=== PATIENT | female | born 1970 | race Caucasian/White ===

== ENCOUNTER 2017-04-01 22:14 | Inpatient (IN) | payer MEDICARE ==
[~2017-04-01] VITALS: Ht 170.1 cm; Wt 134.0 kg
[2017-04-01] VITALS (8 sets, daily range): BP systolic 82–120; BP diastolic 46–78
[~2017-04-01 22:14] MED LIST: ADVAIR 100/501 E1 INH; ANTIVERT25 MG PO; ATIVAN1 MG PO; AVPAK AZITHROM250 M1 PO; BACTRIM DS 8001 TA1 PO; BIRTH CONTROL1 EAC1; BUSPAR15 MG PO; CILOXAN 5 ML5 M1 OP; DEPAKOTE250 MG PO; DIFLUCAN150 MG PO; DOXYCYCLINE MO100 MG PO; DUONEB 3 MG/3 ML3 M1 INH; ELAVIL100 MG PO; ERYTHROMYCIN5 MG/G2 OPH; FIORICET 325 MG1 TAB PO; FLEXERIL10 MG PO; FLONASE0.05 MG/AC NS; HYDROXYZINE PAM50 MG PO; KLONOPIN1 MG PO; LIPITOR40 MG PO; LOMOTIL 0.025 M1 TA1 PO; LUNESTA2 MG PO; Lopressor25 MG PO; MAXALT5 MG PO; MEDROL DOSEPAK4 MG PO; METOPROLOL SUC100 M1 PO; MOTRIN800 MG PO; MULTI-DAY PLUS1 EACH PO; NEXIUM I.V.40 MG PO; NEXIUM40 MG PO; NORFLEX100 MG PO; PERCOCET 325 MG1 TA2 PO; PERCOCET 325 MG1 TA3 PO; PERCOCET 325 MG1 TA7 PO; PHENERGAN25 M1 PO; PREDNICOT20 MG PO; PREDNISONE10 MG PO; PRESTIQUE PO; SINGULAIR4 MG PO; SKELAXIN400 MG PO; TESSALON PERLE100 M1 PO; TESSALON PERLE200 MG PO; TRAMADOL HCL50 MG PO; ULTRAM50 MG PO; VENTOLIN0.09 MG/AC IH; VICODIN 5/500 505 MG; VICODIN 5/500 505 MG PO; VITAMIN D2000 IU PO; Vicodin 5/500 505 MG PO; ZANAFLEX6 M1 PO; ZITHROMAX Z PA250 MG PO; ZOFRAN ODT4 MG SL; ZOFRAN ODT8 MG PO; ZOFRAN4 MG PO; ZOFRAN8 M1 PO; ZYRTEC10 M1 PO; [UNRECOGNIZED DRUG - REMARK]
[2017-04-01 22:51] LABS: BASO # 0.1 10*3/uL (0.0-0.1); BASO % 0.6 % (0.0-1.0); EOS # 0.1 10*3/uL (0.0-0.4); HEMATOCRIT 43.9 % (37.0-47.0); HEMOGLOBIN 14.4 g/dl (12.0-16.0); LYMPH % 38.9 % (27.0-41.0); MEAN CELL VOLUME 93.4 fl (81.0-99.0); MEAN CORPUSCULAR HGB 30.6 pg (27.0-31.0); MEAN CORPUSCULAR HGB CONC 32.8 g/dl (33.0-37.0); MEAN PLATELET VOLUME 11.2 fl (9.6-12.3); MONO # 0.5 10*3/uL (0.1-1.0); MONO % 4.2 % (3.0-9.0); NEUT % 55.1 % (47.0-73.0); PLATELET COUNT AUTOMATED 320 10*3/uL (130-400); RED CELL DISTRI WIDTH 12.8 % (0-14.5); WHITE BLOOD COUNT 12.8 10*3/uL (4.8-10.8)
[2017-04-01 23:07] LABS: ALBUMIN 3.2 gm/dl (3.1-4.5); ALKALINE PHOSPHATASE 125 U/L (45-117); BILIRUBIN, TOTAL 0.3 mg/dl (0.2-1.0); BUN 8 mg/dl (7-24); C-REACTIVE PROTEIN 0.68 MG/DL (0-0.3); CARBON DIOXIDE 25 mmol/L (21-32); CHLORIDE 102 mmol/L (98-107); EST GLOM FILT AFRICAN AMERICAN > 60 ml/min; GLUCOSE 201 mg/dL (65-99); POTASSIUM 4.1 mmol/L (3.5-5.1); SGOT/AST 30 IU/L (3-35); SGPT/ALT 54 U/L (12-78); SODIUM 141 mmol/L (136-145); TOTAL PROTEIN 6.6 gm/dL (6.4-8.2)
[2017-04-01 23:11] LABS: TROPONIN I < 0.015 ng/ml (<0.045)
[2017-04-02] VITALS (38 sets, daily range): BP systolic 72–183; BP diastolic 24–100
[2017-04-02 00:48] LABS: LA>2 REFLEX 2 HR DRAW NOW
[2017-04-02 01:08] LABS: LA>2 RFLX FOLLOW UP AT 2 HRS 2.3 mmol/L (0.4-2.0)
[2017-04-02 02:26] LABS: BILIRUBIN NEGATIVE (NEGATIVE); BLOOD NEGATIVE (NEGATIVE); CLARITY CLEAR (CLEAR); COLOR YELLOW (YELLOW); GLUCOSE NEGATIVE (NEGATIVE); KETONE NEGATIVE (NEGATIVE); LEUKO ESTERASE NEGATIVE (NEGATIVE); NITRITE NEGATIVE (NEGATIVE); PROTEIN NEGATIVE (NEGATIVE); UROBILINOGEN 0.2 E.U./dl (0.2-1.0)
[2017-04-02 02:32] LABS: HYALINE CAST 25-30; URINE REFLEX COMMENT NO (NO)
[2017-04-02 02:37] LABS: URINE AMPHETAMINES < 1000 (1000ng/ml); URINE BARBITURATES < 200 (200ng/ml); URINE COCAINE < 300 (300ng/ml)
[2017-04-02 02:57] LABS: LA>2 REFLEX 4 HR DRAW NOW
[2017-04-02 05:37] LABS: ALBUMIN 3.2 gm/dl (3.1-4.5); ALKALINE PHOSPHATASE 118 U/L (45-117); BILIRUBIN, TOTAL 0.3 mg/dl (0.2-1.0); BUN 8 mg/dl (7-24); CARBON DIOXIDE 27 mmol/L (21-32); CHLORIDE 105 mmol/L (98-107); CHOLESTEROL 161 mg/dL (<200); EST GLOM FILT AFRICAN AMERICAN > 60 ml/min; FREE T4 0.84 ng/dl (0.76-1.46); GLUCOSE 144 mg/dL (65-99); HDL CHOLESTEROL 44 mg/dl (40-60); LDL CHOLESTEROL 74 mg/dL (9-159); PHOSPHOROUS 3.1 mg/dL (2.5-4.9); POTASSIUM 3.9 mmol/L (3.5-5.1); SGOT/AST 31 IU/L (3-35); SGPT/ALT 51 U/L (12-78); SODIUM 143 mmol/L (136-145); TOTAL PROTEIN 6.4 gm/dL (6.4-8.2); TRIGLYCERIDES 216 mg/dl (<150); VLDL CHOLESTEROL 43 mg/dL (6-40)
[2017-04-02 06:05] LABS: BASO # 0.1 10*3/uL (0.0-0.1); BASO % 0.4 % (0.0-1.0); EOS # 0.1 10*3/uL (0.0-0.4); EOS % 0.3 % (1.0-4.0); HEMATOCRIT 40.5 % (37.0-47.0); HEMOGLOBIN 13.4 g/dl (12.0-16.0); IG # 0.1 10*3/uL (0.0-0.1); LYMPH # 2.9 10*3/uL (1.3-4.4); LYMPH % 15.9 % (27.0-41.0); MEAN CORPUSCULAR HGB 31.1 pg (27.0-31.0); MEAN CORPUSCULAR HGB CONC 33.1 g/dl (33.0-37.0); MEAN PLATELET VOLUME 11.3 fl (9.6-12.3); MONO # 1.2 10*3/uL (0.1-1.0); MONO % 6.6 % (3.0-9.0); NEUT % 76.3 % (47.0-73.0); PLATELET COUNT AUTOMATED 363 10*3/uL (130-400); RED BLOOD COUNT 4.31 10*6/uL (4.10-5.10); RED CELL DISTRI WIDTH 12.8 % (0-14.5); WHITE BLOOD COUNT 18.4 10*3/uL (4.8-10.8)
[2017-04-02 06:31] LABS: INTERNATIONAL NORM RATIO 1.1 (2.0-3.5); PROTHROMBIN TIME 11.3 SECONDS (9.0-12.4)
[2017-04-02 06:56] LABS: HEMOGLOBIN A1c 6.8 % (4.8-5.6)
[2017-04-02 07:46] LABS: VITAMIN D, 25-HYDROXY 29.9 ng/mL (30-100)
[2017-04-02 07:47] LABS: FOLIC ACID > 24.00 ng/mL (>5.38)
[2017-04-02] MEDS ORDERED: MELATONIN10 M2 PO (09:35)
== END 2017-04-02 17:36 | disposition home or self-care (01) | DRG 917 ==
LOC: ED 22:14 → EDHOLD 04-02 00:26 → ICCU 04-02 00:26 → 4E 04-02 13:12
PROVIDERS: Emergency Medicine Emergency Medical Services; Internal Medicine Hospice and Palliative Medicine
DX: T50.901A Poisoning by unspecified drugs, medicaments and biological substances, accidental (unintentional), initial encounter (principal); N17.0 Acute kidney failure with tubular necrosis; I95.2 Hypotension due to drugs; E87.2 Acidosis; K31.84 Gastroparesis; Z68.42 Body mass index [BMI] 45.0-49.9, adult; G43.909 Migraine, unspecified, not intractable, without status migrainosus; Z91.041 Radiographic dye allergy status; Z91.018 Allergy to other foods; Z83.3 Family history of diabetes mellitus; Z80.9 Family history of malignant neoplasm, unspecified; F32.9 Major depressive disorder, single episode, unspecified; I10 Essential (primary) hypertension; F41.1 Generalized anxiety disorder; K21.9 Gastro-esophageal reflux disease without esophagitis; K76.89 Other specified diseases of liver; E28.2 Polycystic ovarian syndrome; J30.2 Other seasonal allergic rhinitis; D72.829 Elevated white blood cell count, unspecified; R73.9 Hyperglycemia, unspecified; E66.01 Morbid (severe) obesity due to excess calories; E78.00 Pure hypercholesterolemia, unspecified; M51.36 Other intervertebral disc degeneration, lumbar region; E55.9 Vitamin D deficiency, unspecified

== ENCOUNTER 2017-08-18 11:13 | Emergency (ER) | payer MEDICARE ==
[~2017-08-18] VITALS: Ht 170.1 cm; Wt 132.9 kg
[~2017-08-18 11:13] MED LIST changes: +MELATONIN10 M2 PO
[2017-08-18 11:33] VITALS: BP 144/97
[2017-08-18] MEDS ORDERED: DELTASONE20 M1 PO (11:59)
[2017-08-18] MEDS ORDERED: NEURONTIN100 MG PO (12:07)
== END 2017-08-18 12:11 | disposition home or self-care (01) ==
LOC: ED 11:13
DX: M54.42 Lumbago with sciatica, left side (principal); M54.41 Lumbago with sciatica, right side; J45.909 Unspecified asthma, uncomplicated; K21.9 Gastro-esophageal reflux disease without esophagitis; I10 Essential (primary) hypertension; E78.00 Pure hypercholesterolemia, unspecified; R73.9 Hyperglycemia, unspecified; I95.9 Hypotension, unspecified; G43.909 Migraine, unspecified, not intractable, without status migrainosus; N17.0 Acute kidney failure with tubular necrosis; Z90.49 Acquired absence of other specified parts of digestive tract; Z91.041 Radiographic dye allergy status; Z91.018 Allergy to other foods; Z79.899 Other long term (current) drug therapy

== ENCOUNTER → 2017-10-15 | Outpatient (CLI) | payer MEDICARE ==
[~2017-10-15] MED LIST changes: +DELTASONE20 M1 PO; +NEURONTIN100 MG PO
== END | disposition home or self-care (01) ==
LOC: D 13:49
DX: E78.4 Other hyperlipidemia (principal); E66.9 Obesity, unspecified; E11.9 Type 2 diabetes mellitus without complications; K76.9 Liver disease, unspecified

== ENCOUNTER → 2018-03-12 | Outpatient (CLI) | payer MEDICARE | LOC: US 13:17 | DX: O26.851 Spotting complicating pregnancy, first trimester (principal); R93.8 Abnormal findings on diagnostic imaging of other specified body structures; M54.5 Low back pain; Z3A.01 Less than 8 weeks gestation of pregnancy ==

== ENCOUNTER → 2018-04-14 | Outpatient (CLI) | payer MEDICARE | END | disposition home or self-care (01) | LOC: MAMMO 15:19 | DX: Z12.31 Encounter for screening mammogram for malignant neoplasm of breast (principal) ==

== ENCOUNTER → 2018-07-30 | Outpatient (CLI) | payer MEDICARE ==
[2018-07-30 12:40] LABS: HEMATOCRIT 44.8 % (37.0-47.0); HEMOGLOBIN 14.1 g/dl (12.0-16.0); MEAN CELL VOLUME 99.1 fl (81.0-99.0); MEAN CORPUSCULAR HGB 31.2 pg (27.0-31.0); MEAN CORPUSCULAR HGB CONC 31.5 g/dl (33.0-37.0); MEAN PLATELET VOLUME 11.5 fl (9.6-12.3); PLATELET COUNT AUTOMATED 341 10*3/uL (130-400); RED BLOOD COUNT 4.52 10*6/uL (4.10-5.10); RED CELL DISTRI WIDTH 14.7 % (0-14.5); WHITE BLOOD COUNT 11.2 10*3/uL (4.8-10.8)
[2018-07-30 12:59] LABS: ALBUMIN 3.4 gm/dl (3.1-4.5); BUN 16 mg/dl (7-24); CHLORIDE 103 mmol/L (98-107); CHOLESTEROL 150 mg/dL (<200); CREATININE 0.93 mg/dL (0.55-1.02); POTASSIUM 4.1 mmol/L (3.5-5.1); SGOT/AST 27 IU/L (3-35); SGPT/ALT 46 U/L (12-78); SODIUM 140 mmol/L (136-145); TOTAL PROTEIN 6.9 gm/dL (6.4-8.2); TRIGLYCERIDES 186 mg/dl (<150); VLDL CHOLESTEROL 37 mg/dL (6-40)
[2018-07-30 13:00] LABS: BASOPHILS 1 % (0-1); TOTAL CELLS COUNTED 100 #CELLS
[2018-07-30 13:02] LABS: PLATELET SUFFICIENCY NORMAL (NORMAL)
[2018-07-30 13:08] LABS: ALKALINE PHOSPHATASE 111 U/L (45-117); HDL CHOLESTEROL 47 mg/dl (40-60); LDL CHOLESTEROL 66 mg/dL (9-159)
[2018-07-31 06:12] LABS: TOTAL PROTEIN, SERUM 6.4 g/dL (6.0-8.5)
[2018-07-31 15:11] LABS: A/G RATIO 1.1 (0.7-1.7); ALBUMIN 3.4 g/dL (2.9-4.4); ALPHA-1-GLOBULIN 0.2 g/dL (0.0-0.4); ALPHA-2-GLOBULIN 1.1 g/dL (0.4-1.0); ANTICARDIOLIPIN AB, IGG, QN <9 GPL U/mL (0-14); ANTICARDIOLIPIN AB, IGM, QN <9 MPL U/mL (0-12); BETA GLOBULIN 1.3 g/dL (0.7-1.3); CARDIOLIPIN AB IGA 161836 <9 APL U/mL (0-11); GAMMA GLOBULIN 0.5 g/dL (0.4-1.8); M-SPIKE Not Observed g/dL (Not Observed)
[2018-07-31 16:12] LABS: HEMOGLOBIN SOLUBILITY Negative (Negative)
[2018-08-01 00:10] LABS: ACTIVATED PROTEIN C 117762 2.6 ratio (2.2-3.5)
[2018-08-01 20:07] LABS: ANTIPHOSPHATIDYLSERINE IGM 3 MPS IgM (0-25)
== END | disposition home or self-care (01) ==
LOC: LAB 11:54
PROVIDERS: Nurse Practitioner Family
DX: I10 Essential (primary) hypertension (principal); E11.9 Type 2 diabetes mellitus without complications; E03.9 Hypothyroidism, unspecified; N93.9 Abnormal uterine and vaginal bleeding, unspecified; N95.0 Postmenopausal bleeding; E78.2 Mixed hyperlipidemia; F32.9 Major depressive disorder, single episode, unspecified; E55.9 Vitamin D deficiency, unspecified; Z79.899 Other long term (current) drug therapy

== ENCOUNTER 2018-09-02 13:55 | Emergency (ER) | payer MEDICARE ==
[~2018-09-02] VITALS: Ht 170.1 cm; Wt 142.9 kg
[2018-09-02 13:56] VITALS: BP 126/84
[2018-09-02] MEDS ORDERED: NAPROSYN500 MG PO (15:16)
[2018-09-02] MEDS ORDERED: CHLORZOXAZONE500 M2 PO (15:16)
[2018-09-02] MEDS ORDERED: PREDNISONE20 M1 PO (15:16)
== END 2018-09-02 15:20 | disposition home or self-care (01) ==
LOC: ED 13:55
DX: S39.012A Strain of muscle, fascia and tendon of lower back, initial encounter (principal); Z91.041 Radiographic dye allergy status; Z91.018 Allergy to other foods; Z79.899 Other long term (current) drug therapy; Z90.49 Acquired absence of other specified parts of digestive tract; X50.1XXA Overexertion from prolonged static or awkward postures, initial encounter; Y93.89 Activity, other specified; Y92.89 Other specified places as the place of occurrence of the external cause; Y99.8 Other external cause status

== ENCOUNTER → 2018-11-06 | Outpatient (CLI) | payer MEDICARE ==
[~2018-11-06] MED LIST changes: +CHLORZOXAZONE500 M2 PO; +NAPROSYN500 MG PO; +PREDNISONE20 M1 PO
[2018-11-06 14:46] LABS: BASO # 0.1 10*3/uL (0.0-0.1); BASO % 0.8 % (0.0-1.0); EOS # 0.1 10*3/uL (0.0-0.4); EOS % 0.7 % (1.0-4.0); HEMATOCRIT 48.6 % (37.0-47.0); HEMOGLOBIN 15.7 g/dl (12.0-16.0); LYMPH # 3.2 10*3/uL (1.3-4.4); LYMPH % 27.9 % (27.0-41.0); MEAN CELL VOLUME 96.2 fl (81.0-99.0); MEAN CORPUSCULAR HGB 31.1 pg (27.0-31.0); MEAN CORPUSCULAR HGB CONC 32.3 g/dl (33.0-37.0); MEAN PLATELET VOLUME 11.5 fl (9.6-12.3); MONO # 0.7 10*3/uL (0.1-1.0); MONO % 5.7 % (3.0-9.0); NEUT # 7.4 10*3/uL (2.3-7.9); NEUT % 64.5 % (47.0-73.0); PLATELET COUNT AUTOMATED 360 10*3/uL (130-400); RED BLOOD COUNT 5.05 10*6/uL (4.10-5.10); RED CELL DISTRI WIDTH 13.2 % (0-14.5); WHITE BLOOD COUNT 11.4 10*3/uL (4.8-10.8)
[2018-11-06 14:59] LABS: BUN 13 mg/dl (7-24)
[2018-11-06 15:14] LABS: ALBUMIN 3.6 gm/dl (3.1-4.5); ALKALINE PHOSPHATASE 147 U/L (45-117); CHLORIDE 102 mmol/L (98-107); CHOLESTEROL 163 mg/dL (<200); HDL CHOLESTEROL 50 mg/dl (40-60); LDL CHOLESTEROL 79 mg/dL (9-159); POTASSIUM 4.2 mmol/L (3.5-5.1); SGOT/AST 33 IU/L (3-35); SGPT/ALT 52 U/L (12-78); SODIUM 139 mmol/L (136-145); TOTAL PROTEIN 7.7 gm/dL (6.4-8.2); TRIGLYCERIDES 169 mg/dl (<150); VLDL CHOLESTEROL 34 mg/dL (6-40)
== END | disposition home or self-care (01) ==
LOC: LAB 14:01
PROVIDERS: Nurse Practitioner Family
DX: J01.10 Acute frontal sinusitis, unspecified (principal); E11.9 Type 2 diabetes mellitus without complications; J45.40 Moderate persistent asthma, uncomplicated; F32.9 Major depressive disorder, single episode, unspecified; I10 Essential (primary) hypertension; J30.2 Other seasonal allergic rhinitis; E78.5 Hyperlipidemia, unspecified; Z79.899 Other long term (current) drug therapy

== ENCOUNTER → 2019-02-10 | Outpatient (CLI) | payer MEDICARE | END | disposition home or self-care (01) | LOC: US 14:00 | DX: N85.01 Benign endometrial hyperplasia (principal); Z97.5 Presence of (intrauterine) contraceptive device ==

== ENCOUNTER → 2019-05-17 | Outpatient (CLI) | payer MEDICARE | END | disposition home or self-care (01) | LOC: ORTHO 01:31 | DX: M17.11 Unilateral primary osteoarthritis, right knee (principal) ==

== ENCOUNTER → 2019-06-14 | Outpatient (CLI) | payer MEDICARE ==
--- NOTE | ~2019-06-14 | EKG ---
[place], [place] ELECTROCARDIOGRAM REPORT NAME: NAHMOY VASQUEZ UNIT #: [id number] ROOM: DOCTOR: [facility] D[facility] RE[facility] BIRTHDATE: [birth year] [facility] Test Date: 2019-06-14 Test Time: 15:11:32 Pat Name: NAHOMY VASQUEZ Department: Room: Gender: F [employer]ush [employer] Assembler: SS RESP : 1970 Requested By: KEN FRIEDMAN Order Number: [id number] Reading MD: Sandeep David MD Measurements Intervals [place] Rate: 111 P: 67 WI: 149 QRS: 26 QRSD: 93 T: 9 QT: 345 QTc: 469 Interpretive Statements Sinus tachycardia Probable left atrial enlargement Low voltage, precordial leads RSR' in V1 or V2, right VCD or RVH Electronically Signed On 06-14-2019 14:48:20 PDT by Sandeep David MD CM:EKGRPT:ELECTROCARDIOGRAM REPORT [id number] [facility] DRAFT REPORT KEN FRIEDMAN DO
== END | disposition home or self-care (01) ==
LOC: ORTHO 05:24 → RAD 05:24 → LAB 05:24 → ORTHO 18:07
DX: L03.032 Cellulitis of left toe (principal); R07.9 Chest pain, unspecified; F41.9 Anxiety disorder, unspecified; J45.909 Unspecified asthma, uncomplicated; E11.9 Type 2 diabetes mellitus without complications; I10 Essential (primary) hypertension

== ENCOUNTER → 2019-06-22 | Outpatient (CLI) | payer MEDICARE ==
[~2019-06-22] MED LIST changes: +BYETTA10 MCG/0.1 SC; +GLIPIZIDE10 M2 PO; +IMITREX4 MG/0.5 M SQ; +PREDNISONE50 MG PO; +PROAIR HFA8.5 GM INH; +VISTARIL50 MG PO; +ZITHROMAX250 MG PO
--- NOTE | 2019-06-22 10:15 | NUR ---
INFORMED CONSENT OBTAINED FOR STANDARD GXT WITH DR. LARA. RESTING EKG NSR WITH A SUPINE HR OF 85 AND BP OF 114/84 AND HR OF 100 WITH BP OF 118/84 IN STANDING POSITION. PT COMPLETED 4:26 OF A PRAKASH PROTOCOL WITH COMPLETION OF 1:26 OF STAGE II AT 2.5 MPH AND 12% GRADE. REACHED A PEAK HR OF 152 WHICH IS 87% OF PREDICTED MAX AND A PEAK BP OF 144/80. TEST TERMINATED BECAUSE OF FATIGUE AND SHORTNESS OF BREATH. HAD NO CHEST PAIN OR ANY EKG CHANGES. HAS A FAIR EXERCISE TOLERANCE. NEGATIVE STANDARD GXT. LAST RECOVERY HR OF 109 WITH BP OF 126/84. IV DISCONTINUED AND DISCHARGED IN STABLE CONDITION.
== END | disposition home or self-care (01) ==
LOC: CARD 08:12
DX: R07.9 Chest pain, unspecified (principal); K21.9 Gastro-esophageal reflux disease without esophagitis; F41.9 Anxiety disorder, unspecified; I10 Essential (primary) hypertension; E11.9 Type 2 diabetes mellitus without complications

== ENCOUNTER 2019-08-16 10:47 | Emergency (ER) | payer MEDICARE ==
[~2019-08-16] VITALS: Ht 170.1 cm; Wt 145.1 kg
[2019-08-16 10:47] VITALS: BP 143/88
[~2019-08-16 10:47] MED LIST changes: -PREDNISONE50 MG PO; -PROAIR HFA8.5 GM INH; -ZITHROMAX250 MG PO
[2019-08-16] MEDS ORDERED: PROAIR HFA8.5 GM INH (11:58)
[2019-08-16] MEDS ORDERED: ZITHROMAX250 MG PO (12:00)
[2019-08-16] MEDS ORDERED: TESSALON PERLE100 M1 PO (12:00)
[2019-08-16] MEDS ORDERED: PREDNISONE50 MG PO (12:00)
== END 2019-08-16 11:57 | disposition home or self-care (01) ==
LOC: ED 10:47
DX: J20.9 Acute bronchitis, unspecified (principal); J45.909 Unspecified asthma, uncomplicated; K21.9 Gastro-esophageal reflux disease without esophagitis; G43.909 Migraine, unspecified, not intractable, without status migrainosus; E78.00 Pure hypercholesterolemia, unspecified; I10 Essential (primary) hypertension; E11.9 Type 2 diabetes mellitus without complications; Z91.041 Radiographic dye allergy status; Z91.018 Allergy to other foods; Z79.899 Other long term (current) drug therapy

== ENCOUNTER → 2019-11-18 | Outpatient (CLI) | payer MEDICARE ==
[~2019-11-18] MED LIST changes: +PREDNISONE50 MG PO; +PROAIR HFA8.5 GM INH; +ZITHROMAX250 MG PO
== END | disposition home or self-care (01) ==
LOC: RAD 13:54
DX: M79.644 Pain in right finger(s) (principal); E11.9 Type 2 diabetes mellitus without complications

== ENCOUNTER 2020-10-23 14:58 | Inpatient (IN) | payer MEDICARE ==
[~2020-10-23] VITALS: Ht 170.1 cm; Wt 141.5 kg
[2020-10-23 15:37] VITALS: BP 143/79
[2020-10-23 17:01] LABS: BASO % 0.3 % (0.0-1.0); HEMATOCRIT 49.4 % (37.0-47.0); LYMPH # 1.4 10*3/uL (1.3-4.4); LYMPH % 18.8 % (27.0-41.0); MEAN CELL VOLUME 92.5 fl (81.0-99.0); MEAN CORPUSCULAR HGB CONC 32.4 g/dl (33.0-37.0); MEAN PLATELET VOLUME 11.2 fl (9.6-12.3); MONO # 0.6 10*3/uL (0.1-1.0); MONO % 8.4 % (3.0-9.0); NEUT # 5.3 10*3/uL (2.3-7.9); NEUT % 72.4 % (47.0-73.0); PLATELET COUNT AUTOMATED 272 10*3/uL (130-400); RED BLOOD COUNT 5.34 10*6/uL (4.10-5.10); WHITE BLOOD COUNT 7.3 10*3/uL (4.8-10.8)
[2020-10-23 17:14] LABS: ACT PARTIAL THROMBO TIME 25.9 SECONDS (20.0-32.1)
[2020-10-23 17:16] LABS: ALBUMIN 3.4 gm/dl (3.1-4.5); ALKALINE PHOSPHATASE 173 U/L (45-117); BUN 10 mg/dl (7-24); CHLORIDE 102 mmol/L (98-107); CREATININE 1.02 mg/dL (0.55-1.02); LIPASE 103 U/L (73-393); SGOT/AST 98 IU/L (3-35); SGPT/ALT 133 U/L (12-78); SODIUM 137 mmol/L (136-145); TOTAL PROTEIN 7.8 gm/dL (6.4-8.2)
[2020-10-23 17:18] LABS: TROPONIN I < 0.015 ng/ml (<0.045)
[2020-10-23 17:56] LABS: BILIRUBIN Negative (Negative); BLOOD Negative (Negative); CLARITY Cloudy (Clear); COLOR Dark Yellow (Yellow); GLUCOSE Negative (Negative); KETONE Trace (Negative); LEUKO ESTERASE Negative (Negative); NITRITE Negative (Negative); PH 5.5 (4.5-8.0); SPECIFIC GRAVITY >= 1.030 (1.001-1.030)
[2020-10-23 18:13] LABS: BACTERIA 1+; EPITHELIAL CELLS 16-20; MUCOUS 1+
[2020-10-23 20:00] VITALS: BP 137/62
[2020-10-23] MEDS ORDERED: VICTOZA 2-0.6 MG/0.1 SC (21:03)
[2020-10-23] MEDS ORDERED: LAMICTAL100 MG PO (21:04)
[2020-10-23 21:30] VITALS: BP 137/62
[2020-10-23] MEDS ORDERED: HUMALOG100 UNIT/1 SC (22:19)
[2020-10-23] MEDS ORDERED: LANTUS SOL100 UNIT/1 SC (22:32)
[2020-10-24] VITALS: BP 137/82
[2020-10-24 00:31] LABS: ABG BASE EXCESS 1.4 mmol/L (-2.0-2.0); ARTERIAL BLOOD GAS PH 7.393 (7.35-7.45)
[2020-10-24 06:17] LABS: HEMATOCRIT 48.5 % (37.0-47.0); LYMPH # 0.8 10*3/uL (1.3-4.4); LYMPH % 16.7 % (27.0-41.0); MEAN CELL VOLUME 95.3 fl (81.0-99.0); MEAN CORPUSCULAR HGB 29.9 pg (27.0-31.0); MEAN CORPUSCULAR HGB CONC 31.3 g/dl (33.0-37.0); MEAN PLATELET VOLUME 11.8 fl (9.6-12.3); MONO # 0.1 10*3/uL (0.1-1.0); MONO % 2.2 % (3.0-9.0); NEUT # 3.7 10*3/uL (2.3-7.9); NEUT % 80.9 % (47.0-73.0); PLATELET COUNT AUTOMATED 260 10*3/uL (130-400); RED BLOOD COUNT 5.09 10*6/uL (4.10-5.10); RED CELL DISTRI WIDTH 13.9 % (0-14.5); WHITE BLOOD COUNT 4.6 10*3/uL (4.8-10.8)
[2020-10-24 06:51] LABS: ALBUMIN 3.2 gm/dl (3.1-4.5); ALKALINE PHOSPHATASE 157 U/L (45-117); BUN 11 mg/dl (7-24); CHLORIDE 104 mmol/L (98-107); CHOLESTEROL 154 mg/dL (<200); CREATININE 0.86 mg/dL (0.55-1.02); HDL CHOLESTEROL 48 mg/dl (40-60); LDH 222 U/L (84-246); LDL CHOLESTEROL 85 mg/dL (9-159); POTASSIUM 4.3 mmol/L (3.5-5.1); SGOT/AST 52 IU/L (3-35); SGPT/ALT 116 U/L (12-78); SODIUM 138 mmol/L (136-145); TRIGLYCERIDES 104 mg/dl (<150); VLDL CHOLESTEROL 21 mg/dL (6-40)
[2020-10-24 06:52] LABS: TOTAL PROTEIN 7.6 gm/dL (6.4-8.2)
[2020-10-24 06:57] LABS: CPK 43 U/L (26-192); THYROID STIM HORMONE (HS) 0.682 uIU/ml (0.358-4.75)
[2020-10-24 08:00] VITALS: BP 133/83
[2020-10-24 08:01] LABS: FERRITIN 138.7 ng/mL (10.0-291.0)
[2020-10-24 12:00] VITALS: BP 131/80
[2020-10-24 16:00] VITALS: BP 149/87
[2020-10-24 20:00] VITALS: BP 131/80
[2020-10-25] VITALS: BP 127/51
[2020-10-25 06:24] LABS: BASO % 0.3 % (0.0-1.0); HEMATOCRIT 48.6 % (37.0-47.0); LYMPH # 1.7 10*3/uL (1.3-4.4); LYMPH % 14.2 % (27.0-41.0); MEAN CELL VOLUME 95.3 fl (81.0-99.0); MEAN CORPUSCULAR HGB CONC 31.5 g/dl (33.0-37.0); MEAN PLATELET VOLUME 11.9 fl (9.6-12.3); MONO # 0.9 10*3/uL (0.1-1.0); MONO % 7.5 % (3.0-9.0); NEUT # 9.2 10*3/uL (2.3-7.9); NEUT % 77.6 % (47.0-73.0); PLATELET COUNT AUTOMATED 329 10*3/uL (130-400); RED CELL DISTRI WIDTH 13.8 % (0-14.5); WHITE BLOOD COUNT 11.9 10*3/uL (4.8-10.8)
[2020-10-25 06:34] LABS: ALBUMIN 3.2 gm/dl (3.1-4.5); ALKALINE PHOSPHATASE 146 U/L (45-117); BUN 14 mg/dl (7-24); CHLORIDE 103 mmol/L (98-107); CREATININE 1.04 mg/dL (0.55-1.02); LDH 202 U/L (84-246); POTASSIUM 3.4 mmol/L (3.5-5.1); SGOT/AST 36 IU/L (3-35); SGPT/ALT 95 U/L (12-78); SODIUM 139 mmol/L (136-145); TOTAL PROTEIN 7.3 gm/dL (6.4-8.2)
[2020-10-25 06:40] LABS: CPK 56 U/L (26-192)
[2020-10-25 08:00] VITALS: BP 139/83
[2020-10-25 12:00] VITALS: BP 125/78
[2020-10-25 16:00] VITALS: BP 151/96
[2020-10-25 20:00] VITALS: BP 133/91
[2020-10-26] VITALS: BP 140/79
[2020-10-26 06:11] LABS: BASO % 0.3 % (0.0-1.0); LYMPH # 1.7 10*3/uL (1.3-4.4); LYMPH % 22.2 % (27.0-41.0); MEAN CELL VOLUME 95.7 fl (81.0-99.0); MEAN CORPUSCULAR HGB 29.8 pg (27.0-31.0); MEAN CORPUSCULAR HGB CONC 31.1 g/dl (33.0-37.0); MEAN PLATELET VOLUME 11.8 fl (9.6-12.3); MONO # 0.6 10*3/uL (0.1-1.0); NEUT # 5.3 10*3/uL (2.3-7.9); PLATELET COUNT AUTOMATED 265 10*3/uL (130-400); RED CELL DISTRI WIDTH 13.8 % (0-14.5); WHITE BLOOD COUNT 7.6 10*3/uL (4.8-10.8)
[2020-10-26 06:20] LABS: ALBUMIN 2.8 gm/dl (3.1-4.5); ALKALINE PHOSPHATASE 122 U/L (45-117); BUN 13 mg/dl (7-24); CHLORIDE 99 mmol/L (98-107); CREATININE 0.81 mg/dL (0.55-1.02); LDH 181 U/L (84-246); POTASSIUM 3.9 mmol/L (3.5-5.1); SGOT/AST 32 IU/L (3-35); SGPT/ALT 83 U/L (12-78); SODIUM 136 mmol/L (136-145); TOTAL PROTEIN 6.5 gm/dL (6.4-8.2)
[2020-10-26 06:24] LABS: CPK 37 U/L (26-192)
[2020-10-26 08:00] VITALS: BP 140/72
[2020-10-26 12:00] VITALS: BP 143/83
[2020-10-26 16:00] VITALS: BP 139/67
[2020-10-26 20:00] VITALS: BP 150/79
[2020-10-27] VITALS: BP 154/86
[2020-10-27 05:22] LABS: ALBUMIN 2.8 gm/dl (3.1-4.5); ALKALINE PHOSPHATASE 121 U/L (45-117); BUN 12 mg/dl (7-24); CHLORIDE 99 mmol/L (98-107); CREATININE 0.87 mg/dL (0.55-1.02); POTASSIUM 4.1 mmol/L (3.5-5.1); SGOT/AST 27 IU/L (3-35); SGPT/ALT 81 U/L (12-78); SODIUM 137 mmol/L (136-145); TOTAL PROTEIN 6.7 gm/dL (6.4-8.2)
[2020-10-27 06:08] LABS: BASO % 0.2 % (0.0-1.0); EOS # 0.2 10*3/uL (0.0-0.4); EOS % 2.2 % (1.0-4.0); HEMATOCRIT 44.1 % (37.0-47.0); LYMPH # 1.8 10*3/uL (1.3-4.4); LYMPH % 20.9 % (27.0-41.0); MEAN CELL VOLUME 94.6 fl (81.0-99.0); MEAN CORPUSCULAR HGB 29.8 pg (27.0-31.0); MEAN CORPUSCULAR HGB CONC 31.5 g/dl (33.0-37.0); MEAN PLATELET VOLUME 11.8 fl (9.6-12.3); MONO # 0.8 10*3/uL (0.1-1.0); MONO % 8.6 % (3.0-9.0); NEUT # 5.9 10*3/uL (2.3-7.9); NEUT % 67.5 % (47.0-73.0); PLATELET COUNT AUTOMATED 244 10*3/uL (130-400); RED BLOOD COUNT 4.66 10*6/uL (4.10-5.10); RED CELL DISTRI WIDTH 13.7 % (0-14.5); WHITE BLOOD COUNT 8.7 10*3/uL (4.8-10.8)
[2020-10-27 08:00] VITALS: BP 150/90
[2020-10-27] MEDS ORDERED: METOPROLOL SUCC50 M1 PO (11:50)
[2020-10-27] MEDS ORDERED: ZITHROMAX250 MG PO (11:52)
[2020-10-27] MEDS ORDERED: DECADRON6 M1 PO (11:52)
[2020-10-27 12:00] VITALS: BP 142/85
== END 2020-10-27 15:08 | disposition home or self-care (01) | DRG 871 ==
LOC: ED 14:58 → 4E 19:39 → EDHOLD 19:39 → 4E 20:44
PROVIDERS: Internal Medicine; Physician Assistant; Student in an Organized Health Care Education/Training Program; ADMIT Internal Medicine; ATTEND Internal Medicine
DX: A41.9 Sepsis, unspecified organism (principal); N17.0 Acute kidney failure with tubular necrosis; U07.1 COVID-19; J12.82 Pneumonia due to coronavirus disease 2019; E87.2 Acidosis; E44.1 Mild protein-calorie malnutrition; Z68.42 Body mass index [BMI] 45.0-49.9, adult; Z20.822 Contact with and (suspected) exposure to COVID-19; R74.01 Elevation of levels of liver transaminase levels; E66.01 Morbid (severe) obesity due to excess calories; F41.1 Generalized anxiety disorder; G43.909 Migraine, unspecified, not intractable, without status migrainosus; K31.84 Gastroparesis; K21.9 Gastro-esophageal reflux disease without esophagitis; E11.65 Type 2 diabetes mellitus with hyperglycemia; Z79.4 Long term (current) use of insulin; J45.20 Mild intermittent asthma, uncomplicated; J30.2 Other seasonal allergic rhinitis; E11.43 Type 2 diabetes mellitus with diabetic autonomic (poly)neuropathy; I10 Essential (primary) hypertension; E78.00 Pure hypercholesterolemia, unspecified; E28.2 Polycystic ovarian syndrome; M51.35 Other intervertebral disc degeneration, thoracolumbar region; K76.0 Fatty (change of) liver, not elsewhere classified; F31.70 Bipolar disorder, currently in remission, most recent episode unspecified; E83.41 Hypermagnesemia; Z90.710 Acquired absence of both cervix and uterus; Z90.49 Acquired absence of other specified parts of digestive tract; Z91.041 Radiographic dye allergy status; Z88.8 Allergy status to other drugs, medicaments and biological substances; Z79.51 Long term (current) use of inhaled steroids; Z79.899 Other long term (current) drug therapy

== ENCOUNTER → 2020-12-13 | Outpatient (CLI) | payer MEDICARE ==
[~2020-12-13] MED LIST changes: +DECADRON6 M1 PO; +HUMALOG100 UNIT/1 SC; +LAMICTAL100 MG PO; +LANTUS SOL100 UNIT/1 SC; +METOPROLOL SUCC50 M1 PO; +VICTOZA 2-0.6 MG/0.1 SC
== END | disposition home or self-care (01) ==
LOC: ORTHO 01:40
PROVIDERS: ATTEND Orthopaedic Surgery
DX: M17.11 Unilateral primary osteoarthritis, right knee (principal); M25.861 Other specified joint disorders, right knee

== ENCOUNTER → 2021-02-07 | Outpatient (CLI) | payer MEDICARE | END | disposition home or self-care (01) | LOC: LAB 14:26 | PROVIDERS: ATTEND Internal Medicine Critical Care Medicine | DX: D64.9 Anemia, unspecified (principal); R53.83 Other fatigue ==

== ENCOUNTER → 2021-05-17 | Outpatient (CLI) | payer MEDICARE ==
[2021-05-17 12:39] LABS: BASO # 0.1 10*3/uL (0.0-0.1); BASO % 0.6 % (0.0-1.0); EOS # 0.1 10*3/uL (0.0-0.4); EOS % 0.9 % (1.0-4.0); HEMATOCRIT 44.6 % (37.0-47.0); LYMPH # 3.1 10*3/uL (1.3-4.4); LYMPH % 26.1 % (27.0-41.0); MEAN CELL VOLUME 93.9 fl (81.0-99.0); MEAN CORPUSCULAR HGB 30.5 pg (27.0-31.0); MEAN CORPUSCULAR HGB CONC 32.5 g/dl (33.0-37.0); MEAN PLATELET VOLUME 11.5 fl (9.6-12.3); MONO # 0.6 10*3/uL (0.1-1.0); MONO % 5.1 % (3.0-9.0); NEUT # 7.8 10*3/uL (2.3-7.9); PLATELET COUNT AUTOMATED 308 10*3/uL (130-400); RED BLOOD COUNT 4.75 10*6/uL (4.10-5.10); RED CELL DISTRI WIDTH 13.5 % (0-14.5); WHITE BLOOD COUNT 11.7 10*3/uL (4.8-10.8)
[2021-05-17 12:55] LABS: ALBUMIN 3.2 gm/dl (3.1-4.5); BUN 13 mg/dl (7-24); CHLORIDE 105 mmol/L (98-107); CHOLESTEROL 148 mg/dL (<200); CREATININE 0.71 mg/dL (0.55-1.02); IRON 94 ug/dL (50-170); LDL CHOLESTEROL 70 mg/dL (9-159); POTASSIUM 4.3 mmol/L (3.5-5.1); SGOT/AST 27 IU/L (3-35); SGPT/ALT 66 U/L (12-78); SODIUM 138 mmol/L (136-145); TOTAL IRON BINDING CAPACITY 406 ug/dl (250-450); TOTAL PROTEIN 6.8 gm/dL (6.4-8.2); TRIGLYCERIDES 117 mg/dl (<150)
[2021-05-17 12:59] LABS: ALKALINE PHOSPHATASE 145 U/L (45-117)
[2021-05-17 13:50] LABS: VITAMIN D, 25-HYDROXY 24.6 ng/mL (30-100)
== END | disposition home or self-care (01) ==
LOC: LAB 12:19
PROVIDERS: ATTEND Nurse Practitioner Family
DX: E55.9 Vitamin D deficiency, unspecified (principal); E11.9 Type 2 diabetes mellitus without complications; E03.9 Hypothyroidism, unspecified; E66.01 Morbid (severe) obesity due to excess calories; E78.5 Hyperlipidemia, unspecified

== ENCOUNTER 2021-08-08 16:01 | Emergency (ER) | payer MEDICARE ==
[~2021-08-08] VITALS: Ht 170.1 cm; Wt 142.9 kg
[2021-08-08 16:09] VITALS: BP 150/84
[2021-08-08] MEDS ORDERED: AUGMENTIN 875875 MG PO (19:35)
[2021-08-08] MEDS ORDERED: FLONASE ALLERG9.9 ML NAS (19:35)
== END 2021-08-08 19:58 | disposition home or self-care (01) ==
LOC: ED 16:01
DX: J32.9 Chronic sinusitis, unspecified (principal); Z91.041 Radiographic dye allergy status; Z79.899 Other long term (current) drug therapy

== ENCOUNTER 2021-09-24 13:47 | Emergency (ER) | payer OTHER ==
[~2021-09-24 13:47] MED LIST changes: +AUGMENTIN 875875 MG PO; +FLONASE ALLERG9.9 ML NAS
[2021-09-24 14:51] VITALS: BP 140/79
[2021-09-24 19:07] LABS: BASO # 0.1 10*3/uL (0.0-0.1); BASO % 0.5 % (0.0-1.0); EOS # 0.1 10*3/uL (0.0-0.4); HEMATOCRIT 45.6 % (37.0-47.0); LYMPH # 2.8 10*3/uL (1.3-4.4); LYMPH % 27.7 % (27.0-41.0); MEAN CELL VOLUME 97.9 fl (81.0-99.0); MEAN CORPUSCULAR HGB 31.1 pg (27.0-31.0); MEAN CORPUSCULAR HGB CONC 31.8 g/dl (33.0-37.0); MEAN PLATELET VOLUME 10.7 fl (9.6-12.3); MONO # 0.4 10*3/uL (0.1-1.0); MONO % 4.4 % (3.0-9.0); NEUT # 6.5 10*3/uL (2.3-7.9); NEUT % 66.1 % (47.0-73.0); PLATELET COUNT AUTOMATED 284 10*3/uL (130-400); RED BLOOD COUNT 4.66 10*6/uL (4.10-5.10); WHITE BLOOD COUNT 9.9 10*3/uL (4.8-10.8)
[2021-09-24 19:16] LABS: ACT PARTIAL THROMBO TIME 24.7 SECONDS (20.0-32.1)
[2021-09-24 19:21] LABS: BILIRUBIN Negative (Negative); BLOOD Negative (Negative); CLARITY Clear (Clear); COLOR Yellow (Yellow); GLUCOSE Trace (Negative); KETONE Trace (Negative); LEUKO ESTERASE Negative (Negative); NITRITE Negative (Negative); PH 5.5 (4.5-8.0); SPECIFIC GRAVITY >= 1.030 (1.001-1.030); UROBILINOGEN 0.2 E.U./dl (0.0-1.0)
[2021-09-24 19:31] LABS: ALBUMIN 2.9 gm/dl (3.1-4.5); ALKALINE PHOSPHATASE 137 U/L (45-117); BUN 8 mg/dl (7-24); CHLORIDE 103 mmol/L (98-107); CREATININE 0.83 mg/dL (0.55-1.02); POTASSIUM 4.1 mmol/L (3.5-5.1); SGOT/AST 36 IU/L (3-35); SGPT/ALT 60 U/L (12-78); SODIUM 140 mmol/L (136-145); TOTAL PROTEIN 6.7 gm/dL (6.4-8.2)
[2021-09-24 19:48] LABS: BACTERIA 1+; EPITHELIAL CELLS TNTC; MUCOUS 1+; WBC 0-2 wbc/hpf (0-5)
[2021-09-24] MEDS ORDERED: PREDNISONE20 M1 PO (20:40)
[2021-09-24] MEDS ORDERED: PROVENTIL HFA6.7 GM INH (20:40)
== END 2021-09-24 20:47 | disposition home or self-care (01) ==
LOC: ED 13:47
PROVIDERS: Physician Assistant
DX: R05.9 Cough, unspecified (principal); U09.9 Post COVID-19 condition, unspecified; Z91.041 Radiographic dye allergy status; Z79.899 Other long term (current) drug therapy

== ENCOUNTER → 2021-11-26 | Outpatient (CLI) | payer OTHER ==
[~2021-11-26] MED LIST changes: +PROVENTIL HFA6.7 GM INH
== END | disposition home or self-care (01) ==
LOC: RAD 16:43
PROVIDERS: ATTEND Nurse Practitioner Family
DX: M25.521 Pain in right elbow (principal)

== ENCOUNTER → 2021-12-07 | Outpatient (CLI) | payer OTHER ==
[2021-12-07 15:11] LABS: BASO # 0.1 10*3/uL (0.0-0.1); BASO % 0.6 % (0.0-1.0); EOS # 0.1 10*3/uL (0.0-0.4); EOS % 1.3 % (1.0-4.0); HEMATOCRIT 49.3 % (37.0-47.0); LYMPH # 2.7 10*3/uL (1.3-4.4); LYMPH % 28.6 % (27.0-41.0); MEAN CELL VOLUME 98.2 fl (81.0-99.0); MEAN CORPUSCULAR HGB 31.1 pg (27.0-31.0); MEAN CORPUSCULAR HGB CONC 31.6 g/dl (33.0-37.0); MEAN PLATELET VOLUME 11.7 fl (9.6-12.3); MONO # 0.5 10*3/uL (0.1-1.0); MONO % 5.5 % (3.0-9.0); NEUT # 5.9 10*3/uL (2.3-7.9); NEUT % 63.7 % (47.0-73.0); PLATELET COUNT AUTOMATED 333 10*3/uL (130-400); RED BLOOD COUNT 5.02 10*6/uL (4.10-5.10); RED CELL DISTRI WIDTH 13.4 % (0-14.5); WHITE BLOOD COUNT 9.3 10*3/uL (4.8-10.8)
[2021-12-07 15:33] LABS: BUN 9 mg/dl (7-24); CHLORIDE 104 mmol/L (98-107); POTASSIUM 4.2 mmol/L (3.5-5.1); SODIUM 140 mmol/L (136-145)
[2021-12-07 15:36] LABS: ALKALINE PHOSPHATASE 140 U/L (45-117); CHOLESTEROL 152 mg/dL (<200); CREATININE 0.98 mg/dL (0.55-1.02); SGOT/AST 38 IU/L (3-35); SGPT/ALT 80 U/L (12-78); TOTAL PROTEIN 7.2 gm/dL (6.4-8.2); TRIGLYCERIDES 174 mg/dl (<150)
[2021-12-07 15:45] LABS: LDL CHOLESTEROL 69 mg/dL (9-159)
== END | disposition home or self-care (01) ==
LOC: LAB 14:16
PROVIDERS: ATTEND Nurse Practitioner Family
DX: E11.9 Type 2 diabetes mellitus without complications (principal); I10 Essential (primary) hypertension; E78.2 Mixed hyperlipidemia; E03.9 Hypothyroidism, unspecified; E55.9 Vitamin D deficiency, unspecified

== ENCOUNTER 2021-12-24 14:38 | Emergency (ER) | payer OTHER ==
[~2021-12-24] VITALS: Ht 170.1 cm; Wt 148.8 kg
[2021-12-24 14:46] VITALS: BP 149/85
[2021-12-24] MEDS ORDERED: CYCLOBENZAPRINE5 M3 PO (17:20)
== END 2021-12-24 17:28 | disposition home or self-care (01) ==
LOC: ED 14:38
DX: M54.16 Radiculopathy, lumbar region (principal); Z91.041 Radiographic dye allergy status; Z79.899 Other long term (current) drug therapy; Z90.710 Acquired absence of both cervix and uterus; Z90.49 Acquired absence of other specified parts of digestive tract; Z98.890 Other specified postprocedural states; Z90.89 Acquired absence of other organs

== ENCOUNTER → 2022-09-30 | Outpatient (CLI) | payer OTHER ==
[~2022-09-30] MED LIST changes: +CYCLOBENZAPRINE5 M3 PO
[2022-09-30 13:14] LABS: BASO # 0.1 10*3/uL (0.0-0.1); BASO % 0.6 % (0.0-1.0); EOS # 0.2 10*3/uL (0.0-0.4); EOS % 1.7 % (1.0-4.0); HEMATOCRIT 49.9 % (37.0-47.0); LYMPH % 28.9 % (27.0-41.0); MEAN CELL VOLUME 97.3 fl (81.0-99.0); MEAN CORPUSCULAR HGB CONC 31.9 g/dl (33.0-37.0); MEAN PLATELET VOLUME 11.4 fl (9.6-12.3); MONO # 0.6 10*3/uL (0.1-1.0); MONO % 6.1 % (3.0-9.0); NEUT # 6.4 10*3/uL (2.3-7.9); NEUT % 62.3 % (47.0-73.0); PLATELET COUNT AUTOMATED 363 10*3/uL (130-400); RED BLOOD COUNT 5.13 10*6/uL (4.10-5.10); RED CELL DISTRI WIDTH 13.4 % (0-14.5); WHITE BLOOD COUNT 10.2 10*3/uL (4.8-10.8)
[2022-09-30 13:16] LABS: BILIRUBIN Negative (Negative); BLOOD Negative (Negative); CLARITY Clear (Clear); COLOR Yellow (Yellow); GLUCOSE Negative (Negative); KETONE Trace (Negative); LEUKO ESTERASE Trace (Negative); NITRITE Negative (Negative); PH 5.5 (4.5-8.0); SPECIFIC GRAVITY 1.025 (1.001-1.030)
[2022-09-30 13:32] LABS: ALKALINE PHOSPHATASE 163 U/L (46-116); BUN 10 mg/dl (9-23); CHLORIDE 99 mmol/L (98-107); POTASSIUM 4.8 mmol/L (3.4-5.1); SGPT/ALT 40 U/L (10-49); TOTAL PROTEIN 6.9 gm/dL (6.0-8.0)
[2022-09-30 13:33] LABS: ALKALINE PHOSPHATASE 165 U/L (46-116); BUN 10 mg/dl (9-23); CHLORIDE 100 mmol/L (98-107); CHOLESTEROL 183 mg/dL (<200); FREE T4 1.03 ng/dl (0.89-1.76); LDL CHOLESTEROL 95 mg/dL (9-159); POTASSIUM 4.7 mmol/L (3.4-5.1); SGPT/ALT 28 U/L (10-49); THYROID STIM HORMONE (HS) 2.963 uIU/ml (0.550-4.780); TOTAL PROTEIN 6.9 gm/dL (6.0-8.0); TRIGLYCERIDES 179 mg/dl (<150)
[2022-09-30 14:46] LABS: BACTERIA TRACE; HYALINE CAST 0-2; MUCOUS 1+; YEAST TRACE
[2022-10-01 09:07] LABS: CREATININE,URINE 242.8 mg/dL (Not Estab.)
== END | disposition home or self-care (01) ==
LOC: LAB 12:09
PROVIDERS: Nurse Practitioner Family; ATTEND Internal Medicine
DX: E11.9 Type 2 diabetes mellitus without complications (principal); E55.9 Vitamin D deficiency, unspecified; E78.2 Mixed hyperlipidemia; I10 Essential (primary) hypertension; E03.9 Hypothyroidism, unspecified

== ENCOUNTER → 2022-12-19 | Day surgery (SDC) | payer OTHER ==
[2022-12-17 16:03] LABS: BUN 8 mg/dl (9-23); CHLORIDE 106 mmol/L (98-107); POTASSIUM 4.7 mmol/L (3.4-5.1)
[~2022-12-19] VITALS: Ht 170.1 cm; Wt 144.2 kg
[~2022-12-19] MED LIST changes: +EMGALITY S120 MG/1 M SQ; +JARDIANCE10 MG PO; +MOUNJARO2.5 MG/0.1 SQ
[2022-12-19 07:45] VITALS: BP 141/83
[2022-12-19 08:58] VITALS: BP 106/51
[2022-12-19 09:13] VITALS: BP 115/64
[2022-12-19 09:28] VITALS: BP 146/74
[2022-12-19 09:50] VITALS: BP 106/51
== END | disposition home or self-care (01) ==
LOC: SDC 12-17 09:30
PROVIDERS: ATTEND Orthopaedic Surgery
DX: G56.01 Carpal tunnel syndrome, right upper limb (principal); M65.351 Trigger finger, right little finger; E11.42 Type 2 diabetes mellitus with diabetic polyneuropathy; J45.909 Unspecified asthma, uncomplicated; K21.9 Gastro-esophageal reflux disease without esophagitis; G43.909 Migraine, unspecified, not intractable, without status migrainosus; F41.9 Anxiety disorder, unspecified; F32.A Depression, unspecified; I10 Essential (primary) hypertension; Z90.710 Acquired absence of both cervix and uterus; Z90.89 Acquired absence of other organs

== ENCOUNTER → 2022-12-31 | Outpatient (CLI) | payer OTHER ==
[2022-12-31 14:24] LABS: BASO # 0.1 10*3/uL (0.0-0.1); BASO % 0.6 % (0.0-1.0); EOS # 0.1 10*3/uL (0.0-0.4); EOS % 1.3 % (1.0-4.0); HEMATOCRIT 52.1 % (37.0-47.0); LYMPH % 30.1 % (27.0-41.0); MEAN CELL VOLUME 95.9 fl (81.0-99.0); MEAN CORPUSCULAR HGB 30.9 pg (27.0-31.0); MEAN CORPUSCULAR HGB CONC 32.2 g/dl (33.0-37.0); MEAN PLATELET VOLUME 11.1 fl (9.6-12.3); MONO # 0.5 10*3/uL (0.1-1.0); MONO % 5.5 % (3.0-9.0); NEUT # 6.1 10*3/uL (2.3-7.9); NEUT % 62.2 % (47.0-73.0); PLATELET COUNT AUTOMATED 351 10*3/uL (130-400); RED BLOOD COUNT 5.43 10*6/uL (4.10-5.10); RED CELL DISTRI WIDTH 13.2 % (0-14.5); WHITE BLOOD COUNT 9.9 10*3/uL (4.8-10.8)
[2022-12-31 14:35] LABS: URINE CREATININE RANDOM 181.19 mg/dL
[2022-12-31 15:15] LABS: ALKALINE PHOSPHATASE 158 U/L (46-116); BUN 9 mg/dl (9-23); CHLORIDE 105 mmol/L (98-107); CHOLESTEROL 162 mg/dL (<200); LDL CHOLESTEROL 82 mg/dL (9-159); POTASSIUM 4.4 mmol/L (3.4-5.1); SGPT/ALT 32 U/L (10-49); TOTAL PROTEIN 6.9 gm/dL (6.0-8.0); TRIGLYCERIDES 166 mg/dl (<150)
== END | disposition home or self-care (01) ==
LOC: LAB 13:57
PROVIDERS: ATTEND Nurse Practitioner Family
DX: E11.9 Type 2 diabetes mellitus without complications (principal); E78.2 Mixed hyperlipidemia; E55.9 Vitamin D deficiency, unspecified; I10 Essential (primary) hypertension

== ENCOUNTER → 2023-03-14 | Outpatient (CLI) | payer OTHER ==
[2023-03-14 14:46] LABS: BILIRUBIN Negative (Negative); BLOOD Negative (Negative); CLARITY Clear (Clear); COLOR Yellow (Yellow); GLUCOSE 3+ (Negative); KETONE Negative (Negative); LEUKO ESTERASE Negative (Negative); NITRITE Negative (Negative); PH 5.5 (4.5-8.0); SPECIFIC GRAVITY >= 1.030 (1.001-1.030)
[2023-03-14 14:57] LABS: BACTERIA TRACE; RBC 0-2 rbc/hpf (0-2); WBC 0-2 wbc/hpf (0-5)
[2023-03-14 15:18] LABS: ALKALINE PHOSPHATASE 140 U/L (46-116); BUN 10 mg/dl (9-23); CHLORIDE 107 mmol/L (98-107); CHOLESTEROL 165 mg/dL (<200); FREE T4 0.91 ng/dl (0.89-1.76); LDL CHOLESTEROL 90 mg/dL (9-159); POTASSIUM 4.3 mmol/L (3.4-5.1); SGPT/ALT 26 U/L (10-49); THYROID STIM HORMONE (HS) 2.191 uIU/ml (0.550-4.780); TOTAL PROTEIN 6.7 gm/dL (6.0-8.0); TRIGLYCERIDES 132 mg/dl (<150)
== END | disposition home or self-care (01) ==
LOC: LAB 14:04
PROVIDERS: ATTEND Internal Medicine
DX: E11.9 Type 2 diabetes mellitus without complications (principal); E55.9 Vitamin D deficiency, unspecified; E03.9 Hypothyroidism, unspecified; E78.5 Hyperlipidemia, unspecified

== ENCOUNTER → 2023-07-17 | Day surgery (SDC) | payer OTHER ==
[2023-07-15 14:10] LABS: BUN 10 mg/dl (9-23); CHLORIDE 107 mmol/L (98-107); POTASSIUM 4.7 mmol/L (3.4-5.1)
[~2023-07-17] VITALS: Ht 170.1 cm; Wt 127.5 kg
[~2023-07-17] MED LIST changes: +ONDANSETRON ODT8 MG PO; +RIZATRIPTAN10 M1 PO
[2023-07-17 06:48] VITALS: BP 138/88
[2023-07-17 08:01] VITALS: BP 126/76
[2023-07-17 08:16] VITALS: BP 111/57
[2023-07-17 08:26] VITALS: BP 121/88
== END | disposition home or self-care (01) ==
LOC: SDC 07-14 08:00
PROVIDERS: ATTEND Orthopaedic Surgery
DX: G56.02 Carpal tunnel syndrome, left upper limb (principal); E11.9 Type 2 diabetes mellitus without complications; K21.9 Gastro-esophageal reflux disease without esophagitis; J45.909 Unspecified asthma, uncomplicated; I10 Essential (primary) hypertension; E78.00 Pure hypercholesterolemia, unspecified; K31.89 Other diseases of stomach and duodenum; Z79.899 Other long term (current) drug therapy; Z90.49 Acquired absence of other specified parts of digestive tract; Z90.89 Acquired absence of other organs; Z90.710 Acquired absence of both cervix and uterus; Z98.890 Other specified postprocedural states; Z91.041 Radiographic dye allergy status; Z91.013 Allergy to seafood; Z88.8 Allergy status to other drugs, medicaments and biological substances

== ENCOUNTER → 2023-08-25 | Outpatient (CLI) | payer OTHER ==
[2023-08-25 15:25] LABS: BILIRUBIN Negative (Negative); BLOOD Negative (Negative); CLARITY Cloudy (Clear); COLOR Dark Yellow (Yellow); GLUCOSE 3+ (Negative); KETONE Negative (Negative); LEUKO ESTERASE Negative (Negative); NITRITE Negative (Negative); SPECIFIC GRAVITY >= 1.030 (1.001-1.030)
[2023-08-25 15:47] LABS: URINE CREATININE RANDOM 289.32 mg/dL
[2023-08-25 15:54] LABS: ALKALINE PHOSPHATASE 135 U/L (46-116); BUN 11 mg/dl (9-23); CHLORIDE 105 mmol/L (98-107); CHOLESTEROL 156 mg/dL (<200); LDL CHOLESTEROL 79 mg/dL (9-159); POTASSIUM 4.8 mmol/L (3.4-5.1); SGPT/ALT 20 U/L (5-49); TOTAL PROTEIN 6.7 gm/dL (6.0-8.0); TRIGLYCERIDES 175 mg/dl (<150)
[2023-08-25 15:57] LABS: FREE T4 0.96 ng/dl (0.89-1.76); TOTAL PROTEIN 6.8 gm/dL (6.0-8.0); URIC ACID 3.5 mg/dL (3.1-7.8); VITAMIN D, 25-HYDROXY 71.5 ng/mL (30-100)
== END | disposition home or self-care (01) ==
LOC: LAB 14:47
PROVIDERS: Nurse Practitioner Family; ATTEND Internal Medicine
DX: E11.9 Type 2 diabetes mellitus without complications (principal); E55.9 Vitamin D deficiency, unspecified; I10 Essential (primary) hypertension; E03.9 Hypothyroidism, unspecified; E78.5 Hyperlipidemia, unspecified; E66.01 Morbid (severe) obesity due to excess calories

== ENCOUNTER → 2023-12-01 | Outpatient (CLI) | payer OTHER ==
[2023-12-01 13:56] LABS: BASO # 0.1 10*3/uL (0.0-0.1); BASO % 0.7 % (0.0-1.0); EOS # 0.2 10*3/uL (0.0-0.4); EOS % 1.4 % (1.0-4.0); LYMPH # 3.4 10*3/uL (1.3-4.4); LYMPH % 32.4 % (27.0-41.0); MEAN CELL VOLUME 97.4 fl (81.0-99.0); MEAN CORPUSCULAR HGB 31.1 pg (27.0-31.0); MEAN CORPUSCULAR HGB CONC 31.9 g/dl (33.0-37.0); MEAN PLATELET VOLUME 11.2 fl (9.6-12.3); MONO # 0.7 10*3/uL (0.1-1.0); MONO % 6.4 % (3.0-9.0); NEUT # 6.2 10*3/uL (2.3-7.9); NEUT % 58.9 % (47.0-73.0); PLATELET COUNT AUTOMATED 321 10*3/uL (130-400); RED BLOOD COUNT 5.34 10*6/uL (4.10-5.10); RED CELL DISTRI WIDTH 13.2 % (0-14.5); WHITE BLOOD COUNT 10.6 10*3/uL (4.8-10.8)
[2023-12-01 14:08] LABS: URINE CREATININE RANDOM 227.85 mg/dL
[2023-12-01 14:21] LABS: ALKALINE PHOSPHATASE 130 U/L (46-116); BUN 13 mg/dl (9-23); CHLORIDE 104 mmol/L (98-107); CHOLESTEROL 169 mg/dL (<200); LDL CHOLESTEROL 84 mg/dL (9-159); POTASSIUM 4.3 mmol/L (3.4-5.1); SGPT/ALT 14 U/L (5-49); TRIGLYCERIDES 172 mg/dl (<150)
[2023-12-01 14:22] LABS: VITAMIN D, 25-HYDROXY 47.4 ng/mL (30-100)
== END ==
LOC: LAB 13:24
PROVIDERS: ATTEND Nurse Practitioner Family
DX: I10 Essential (primary) hypertension (principal); E11.9 Type 2 diabetes mellitus without complications; E55.9 Vitamin D deficiency, unspecified; E78.5 Hyperlipidemia, unspecified; E03.9 Hypothyroidism, unspecified; E66.01 Morbid (severe) obesity due to excess calories

== ENCOUNTER 2024-02-06 13:54 | Emergency (ER) | payer OTHER ==
[2024-02-06 13:59] VITALS: BP 114/73
[2024-02-06] MEDS ORDERED: CILOXAN3.5 GM OP (14:40)
== END 2024-02-06 14:48 | disposition home or self-care (01) ==
LOC: ED 13:54
DX: H10.9 Unspecified conjunctivitis (principal); J45.909 Unspecified asthma, uncomplicated; K21.9 Gastro-esophageal reflux disease without esophagitis; G43.909 Migraine, unspecified, not intractable, without status migrainosus; F41.9 Anxiety disorder, unspecified; F32.A Depression, unspecified; E78.00 Pure hypercholesterolemia, unspecified; E11.9 Type 2 diabetes mellitus without complications; I10 Essential (primary) hypertension; Z91.041 Radiographic dye allergy status; Z91.013 Allergy to seafood; Z88.8 Allergy status to other drugs, medicaments and biological substances; Z90.49 Acquired absence of other specified parts of digestive tract; Z90.710 Acquired absence of both cervix and uterus; Z90.89 Acquired absence of other organs; Z98.890 Other specified postprocedural states

== ENCOUNTER → 2024-02-19 | Outpatient (CLI) | payer OTHER ==
[~2024-02-19] MED LIST changes: +CILOXAN3.5 GM OP
== END | disposition home or self-care (01) ==
LOC: RAD 13:59
PROVIDERS: ATTEND Nurse Practitioner Family
DX: M25.512 Pain in left shoulder (principal)

== ENCOUNTER 2024-04-03 19:37 | Emergency (ER) | payer OTHER ==
[~2024-04-03] VITALS: Ht 170.1 cm; Wt 121.6 kg
[2024-04-03] MEDS ORDERED: FAMOTIDINE 20 MG TAB PO ONE (20:10)
[2024-04-03] MEDS ORDERED: methylPREDNISolone sod succ 125 MG VIAL IM ONE (20:10)
[2024-04-03] MEDS ORDERED: diphenhydrAMINE hydrochloride 25 MG CAP PO ONE (20:10)
[2024-04-03] MEDS ORDERED: Ketorolac Tromethamine 60 MG/2 ML VIAL IM ONE (20:50)
[2024-04-03] MEDS ORDERED: PREDNISONE20 M1 PO (21:40)
[2024-04-03] MEDS ORDERED: Acetaminophen/Hydrocodone 5 MG/325 MG TABLET PO ONE (21:45)
[2024-04-03 22:09] VITALS: BP 154/93
== END 2024-04-03 22:12 | disposition home or self-care (01) ==
LOC: ED 19:37
DX: S60.861A Insect bite (nonvenomous) of right wrist, initial encounter (principal); R60.0 Localized edema; R51.9 Headache, unspecified; F31.9 Bipolar disorder, unspecified; E83.41 Hypermagnesemia; J45.909 Unspecified asthma, uncomplicated; F32.A Depression, unspecified; K21.9 Gastro-esophageal reflux disease without esophagitis; E78.00 Pure hypercholesterolemia, unspecified; G43.909 Migraine, unspecified, not intractable, without status migrainosus; E11.65 Type 2 diabetes mellitus with hyperglycemia; Z91.041 Radiographic dye allergy status; Z91.013 Allergy to seafood; Z88.8 Allergy status to other drugs, medicaments and biological substances; Z90.49 Acquired absence of other specified parts of digestive tract; Z98.890 Other specified postprocedural states; Z90.710 Acquired absence of both cervix and uterus; Z90.89 Acquired absence of other organs; W57.XXXA Bitten or stung by nonvenomous insect and other nonvenomous arthropods, initial encounter; Y93.89 Activity, other specified; Y92.89 Other specified places as the place of occurrence of the external cause; Y99.8 Other external cause status

== ENCOUNTER → 2024-05-13 | Outpatient (CLI) | payer OTHER ==
[2024-05-13 11:39] LABS: BASO # 0.1 10*3/uL (0.0-0.1); BASO % 0.9 % (0.0-1.0); EOS # 0.1 10*3/uL (0.0-0.4); EOS % 1.3 % (1.0-4.0); LYMPH # 2.7 10*3/uL (1.3-4.4); LYMPH % 30.3 % (27.0-41.0); MEAN CELL VOLUME 97.6 fl (81.0-99.0); MEAN CORPUSCULAR HGB 31.5 pg (27.0-31.0); MEAN CORPUSCULAR HGB CONC 32.2 g/dl (33.0-37.0); MEAN PLATELET VOLUME 11.3 fl (9.6-12.3); MONO # 0.5 10*3/uL (0.1-1.0); MONO % 5.7 % (3.0-9.0); NEUT # 5.5 10*3/uL (2.3-7.9); NEUT % 61.5 % (47.0-73.0); PLATELET COUNT AUTOMATED 341 10*3/uL (130-400); RED BLOOD COUNT 5.02 10*6/uL (4.10-5.10); RED CELL DISTRI WIDTH 13.7 % (0-14.5); WHITE BLOOD COUNT 8.9 10*3/uL (4.8-10.8)
[2024-05-13 11:43] LABS: BILIRUBIN Negative (Negative); BLOOD Negative (Negative); CLARITY Cloudy (Clear); COLOR Dark Yellow (Yellow); GLUCOSE Negative (Negative); KETONE Trace (Negative); LEUKO ESTERASE 2+ (Negative); NITRITE Negative (Negative); PH 5.5 (4.5-8.0)
[2024-05-13 12:09] LABS: ALKALINE PHOSPHATASE 132 U/L (46-116); BUN 9 mg/dl (9-23); CHLORIDE 105 mmol/L (98-107); CHOLESTEROL 180 mg/dL (<200); FREE T4 0.92 ng/dl (0.89-1.76); LDL CHOLESTEROL 100 mg/dL (9-159); POTASSIUM 4.3 mmol/L (3.4-5.1); SGPT/ALT 20 U/L (5-49); TOTAL PROTEIN 6.6 gm/dL (6.0-8.0); TOTAL PROTEIN 6.7 gm/dL (6.0-8.0); TRIGLYCERIDES 142 mg/dl (<150)
[2024-05-13 12:24] LABS: VITAMIN D, 25-HYDROXY 67.7 ng/mL (30-100)
[2024-05-13 12:26] LABS: BACTERIA 1+; EPITHELIAL CELLS 16-20; MUCOUS TRACE; RBC 0-2 rbc/hpf (0-2); WBC 21-30 wbc/hpf (0-5)
== END | disposition home or self-care (01) ==
LOC: LAB 11:01
PROVIDERS: Nurse Practitioner Family; ATTEND Internal Medicine
DX: I10 Essential (primary) hypertension (principal); E11.9 Type 2 diabetes mellitus without complications; E03.9 Hypothyroidism, unspecified; E78.5 Hyperlipidemia, unspecified; E55.9 Vitamin D deficiency, unspecified; E11.40 Type 2 diabetes mellitus with diabetic neuropathy, unspecified; E34.9 Endocrine disorder, unspecified

== ENCOUNTER → 2024-08-13 | Outpatient (CLI) | payer OTHER ==
[2024-08-13 08:44] LABS: BASO # 0.1 10*3/uL (0.0-0.1); BASO % 0.7 % (0.0-1.0); EOS % 0.3 % (1.0-4.0); HEMATOCRIT 52.5 % (37.0-47.0); MEAN CELL VOLUME 96.5 fl (81.0-99.0); MEAN CORPUSCULAR HGB 31.3 pg (27.0-31.0); MEAN CORPUSCULAR HGB CONC 32.4 g/dl (33.0-37.0); MEAN PLATELET VOLUME 11.2 fl (9.6-12.3); MONO # 0.3 10*3/uL (0.1-1.0); MONO % 2.7 % (3.0-9.0); NEUT # 7.3 10*3/uL (2.3-7.9); NEUT % 74.7 % (47.0-73.0); PLATELET COUNT AUTOMATED 357 10*3/uL (130-400); RED BLOOD COUNT 5.44 10*6/uL (4.10-5.10); RED CELL DISTRI WIDTH 12.8 % (0-14.5); WHITE BLOOD COUNT 9.8 10*3/uL (4.8-10.8)
[2024-08-13 09:00] LABS: URINE CREATININE RANDOM 161.2 mg/dL
[2024-08-13 09:07] LABS: ALKALINE PHOSPHATASE 151 U/L (46-116); BUN 11 mg/dl (9-23); CHLORIDE 107 mmol/L (98-107); CHOLESTEROL 201 mg/dL (<200); LDL CHOLESTEROL 114 mg/dL (9-159); POTASSIUM 4.4 mmol/L (3.4-5.1); SGPT/ALT 24 U/L (5-49); TOTAL PROTEIN 7.4 gm/dL (6.0-8.0); TRIGLYCERIDES 146 mg/dl (<150)
== END | disposition home or self-care (01) ==
LOC: LAB 08:13
PROVIDERS: Nurse Practitioner Family; ATTEND Internal Medicine
DX: I10 Essential (primary) hypertension (principal); E11.9 Type 2 diabetes mellitus without complications; E03.9 Hypothyroidism, unspecified; E78.5 Hyperlipidemia, unspecified; E55.9 Vitamin D deficiency, unspecified; R30.0 Dysuria; E34.9 Endocrine disorder, unspecified

== ENCOUNTER → 2024-09-24 | Outpatient (CLI) | payer OTHER ==
[2024-09-24 09:23] LABS: BUN 9 mg/dl (9-23); CHLORIDE 102 mmol/L (98-107); POTASSIUM 3.9 mmol/L (3.4-5.1)
== END | disposition home or self-care (01) ==
LOC: LAB 08:13
PROVIDERS: ATTEND Internal Medicine
DX: E34.9 Endocrine disorder, unspecified (principal); Z79.899 Other long term (current) drug therapy

== ENCOUNTER → 2024-10-26 | Outpatient (CLI) | payer OTHER | END | disposition home or self-care (01) | LOC: US 14:15 | PROVIDERS: ATTEND Internal Medicine Nephrology | DX: N18.31 Chronic kidney disease, stage 3a (principal); N20.0 Calculus of kidney ==

== ENCOUNTER → 2024-11-12 | Outpatient (CLI) | payer OTHER ==
[2024-11-12 15:29] LABS: BASO # 0.1 10*3/uL (0.0-0.1); BASO % 0.5 % (0.0-1.0); BILIRUBIN 2+ (Negative); BLOOD Negative (Negative); CLARITY Cloudy (Clear); COLOR Dark Yellow (Yellow); EOS # 0.1 10*3/uL (0.0-0.4); EOS % 1.3 % (1.0-4.0); GLUCOSE Trace (Negative); HEMATOCRIT 46.1 % (37.0-47.0); KETONE Trace (Negative); LEUKO ESTERASE Trace (Negative); MEAN CELL VOLUME 96.6 fl (81.0-99.0); MEAN CORPUSCULAR HGB 31.4 pg (27.0-31.0); MEAN CORPUSCULAR HGB CONC 32.5 g/dl (33.0-37.0); MEAN PLATELET VOLUME 10.3 fl (9.6-12.3); MONO # 0.5 10*3/uL (0.1-1.0); MONO % 4.9 % (3.0-9.0); NEUT # 6.5 10*3/uL (2.3-7.9); NEUT % 67.2 % (47.0-73.0); NITRITE Negative (Negative); PH 5.5 (4.5-8.0); PLATELET COUNT AUTOMATED 321 10*3/uL (130-400); RED BLOOD COUNT 4.77 10*6/uL (4.10-5.10); RED CELL DISTRI WIDTH 12.8 % (0-14.5); SPECIFIC GRAVITY >= 1.030 (1.001-1.030); WHITE BLOOD COUNT 9.6 10*3/uL (4.8-10.8)
[2024-11-12 15:36] LABS: BACTERIA 1+; EPITHELIAL CELLS 21-30; FINE GRANULAR CAST 0-2; RBC 0-2 rbc/hpf (0-2)
[2024-11-12 15:37] LABS: MUCOUS 2+
[2024-11-12 16:06] LABS: CHOLESTEROL 166 mg/dL (<200); LDL CHOLESTEROL 80 mg/dL (9-159); TRIGLYCERIDES 174 mg/dl (<150)
[2024-11-12 16:07] LABS: ALKALINE PHOSPHATASE 136 U/L (46-116); BUN 9 mg/dl (9-23); CHLORIDE 104 mmol/L (98-107); POTASSIUM 4.1 mmol/L (3.4-5.1); SGPT/ALT 36 U/L (5-49); TOTAL PROTEIN 6.8 gm/dL (6.0-8.0)
[2024-11-12 16:09] LABS: FREE T4 1.22 ng/dl (0.89-1.76); TOTAL PROTEIN 6.8 gm/dL (6.0-8.0)
== END | disposition home or self-care (01) ==
LOC: LAB 14:58
PROVIDERS: Internal Medicine; Nurse Practitioner Family; ATTEND Internal Medicine Nephrology
DX: I12.9 Hypertensive chronic kidney disease with stage 1 through stage 4 chronic kidney disease, or unspecified chronic kidney disease (principal); E11.22 Type 2 diabetes mellitus with diabetic chronic kidney disease; N18.31 Chronic kidney disease, stage 3a; E78.2 Mixed hyperlipidemia; E34.9 Endocrine disorder, unspecified; E55.9 Vitamin D deficiency, unspecified; E03.9 Hypothyroidism, unspecified; Z79.899 Other long term (current) drug therapy

== ENCOUNTER → 2024-11-30 | Outpatient (CLI) | payer OTHER | END | disposition home or self-care (01) | LOC: US 11-25 15:00 → LAB 07:53 → US 08:00 | PROVIDERS: ATTEND Internal Medicine Nephrology | DX: K76.0 Fatty (change of) liver, not elsewhere classified (principal); E11.9 Type 2 diabetes mellitus without complications; E55.9 Vitamin D deficiency, unspecified; E03.9 Hypothyroidism, unspecified; E78.5 Hyperlipidemia, unspecified; E34.9 Endocrine disorder, unspecified; R74.8 Abnormal levels of other serum enzymes; K31.89 Other diseases of stomach and duodenum; I10 Essential (primary) hypertension ==

== ENCOUNTER → 2024-12-29 | Outpatient (CLI) | payer OTHER | END | disposition home or self-care (01) | LOC: MAMMO 13:48 | PROVIDERS: ATTEND Internal Medicine Nephrology | DX: Z12.31 Encounter for screening mammogram for malignant neoplasm of breast (principal); R92.313 Mammographic fatty tissue density, bilateral breasts ==

== ENCOUNTER → 2025-01-17 | Outpatient (CLI) | payer OTHER | END | disposition home or self-care (01) | LOC: RAD 15:55 | PROVIDERS: ATTEND Internal Medicine Nephrology | DX: M54.42 Lumbago with sciatica, left side (principal); Z91.81 History of falling ==

== ENCOUNTER 2025-02-23 16:13 | Emergency (ER) | payer OTHER ==
[~2025-02-23] VITALS: Ht 170.1 cm; Wt 117.9 kg
[2025-02-23 16:49] VITALS: BP 119/82
== END 2025-02-23 18:42 | disposition home or self-care (01) ==
LOC: ED 16:13
DX: S66.912A Strain of unspecified muscle, fascia and tendon at wrist and hand level, left hand, initial encounter (principal); I10 Essential (primary) hypertension; J45.909 Unspecified asthma, uncomplicated; G43.909 Migraine, unspecified, not intractable, without status migrainosus; K21.9 Gastro-esophageal reflux disease without esophagitis; E11.9 Type 2 diabetes mellitus without complications; F32.A Depression, unspecified; F41.9 Anxiety disorder, unspecified; E78.00 Pure hypercholesterolemia, unspecified; Z79.4 Long term (current) use of insulin; Z79.899 Other long term (current) drug therapy; Z91.041 Radiographic dye allergy status; Z91.013 Allergy to seafood; Z90.49 Acquired absence of other specified parts of digestive tract; Z90.710 Acquired absence of both cervix and uterus; Z90.89 Acquired absence of other organs; Z98.890 Other specified postprocedural states; X58.XXXA Exposure to other specified factors, initial encounter; Y93.89 Activity, other specified; Y92.89 Other specified places as the place of occurrence of the external cause; Y99.8 Other external cause status

== ENCOUNTER → 2025-03-09 | Outpatient (CLI) | payer OTHER | END | disposition home or self-care (01) | LOC: RAD 14:54 | PROVIDERS: ATTEND Internal Medicine Nephrology | DX: M19.041 Primary osteoarthritis, right hand (principal); M79.641 Pain in right hand; W19.XXXA Unspecified fall, initial encounter; Y93.89 Activity, other specified; Y92.89 Other specified places as the place of occurrence of the external cause; Y99.8 Other external cause status ==

== ENCOUNTER → 2025-04-20 | Outpatient (CLI) | payer OTHER ==
[2025-04-20 08:31] LABS: BILIRUBIN Negative (Negative); BLOOD Trace-Lysed (Negative); CLARITY Clear (Clear); COLOR Yellow (Yellow); KETONE Negative (Negative); LEUKO ESTERASE Negative (Negative); NITRITE Negative (Negative); PH 5.5 (4.5-8.0); SPECIFIC GRAVITY >= 1.030 (1.001-1.030); UROBILINOGEN 0.2 E.U./dl (0.0-1.0)
[2025-04-20 08:42] LABS: RBC 0-2 rbc/hpf (0-2)
[2025-04-20 08:43] LABS: BACTERIA TRACE
[2025-04-20 09:10] LABS: BUN 13 mg/dl (9-23); FREE T4 1.30 ng/dl (0.89-1.76); LDL CHOLESTEROL 78 mg/dL (9-159); SGPT/ALT 20 U/L (5-49)
[2025-04-20 09:14] LABS: VITAMIN D, 25-HYDROXY 47.2 ng/mL (30-100)
== END | disposition home or self-care (01) ==
LOC: LAB 07:44
PROVIDERS: Internal Medicine Nephrology; ATTEND Internal Medicine
DX: E11.40 Type 2 diabetes mellitus with diabetic neuropathy, unspecified (principal); E03.9 Hypothyroidism, unspecified; E55.9 Vitamin D deficiency, unspecified; E78.5 Hyperlipidemia, unspecified; M13.0 Polyarthritis, unspecified

== ENCOUNTER → 2025-08-19 | Outpatient (CLI) | payer OTHER ==
[2025-08-19 10:09] LABS: BILIRUBIN Negative (Negative); BLOOD Negative (Negative); CLARITY Clear (Clear); COLOR Yellow (Yellow); KETONE Negative (Negative); LEUKO ESTERASE Trace (Negative); NITRITE Negative (Negative); PH 5.5 (4.5-8.0); SPECIFIC GRAVITY >= 1.030 (1.001-1.030); UROBILINOGEN 0.2 E.U./dl (0.0-1.0)
[2025-08-19 10:20] LABS: BUN 10 mg/dl (9-23); FREE T4 1.39 ng/dl (0.89-1.76); LDL CHOLESTEROL 76 mg/dL (9-159); SGPT/ALT 19 U/L (5-49)
[2025-08-19 11:07] LABS: BACTERIA 1+; EPITHELIAL CELLS 21-30; WBC 21-30 wbc/hpf (0-5); YEAST 1+
== END | disposition home or self-care (01) ==
LOC: LAB 08:10
PROVIDERS: ATTEND Internal Medicine
DX: E11.9 Type 2 diabetes mellitus without complications (principal); E03.9 Hypothyroidism, unspecified; E55.9 Vitamin D deficiency, unspecified; E78.5 Hyperlipidemia, unspecified